=== PATIENT | male | born 1955 | race Caucasian/White ===

== ENCOUNTER → 2017-11-27 | Outpatient (CLI) | payer OTHER ==
--- NOTE | 2017-11-27 11:33 | Diagnostic Imaging Report ---
PROCEDURE: Frontal and lateral views of the chest. COMPARISON: None. INDICATIONS: HYPERTENSION FINDINGS: Exam limited by mild patient rotation. Lines/tubes: None. Lungs: The lungs are well inflated and clear. There is no evidence of pneumonia or pulmonary edema. Pleura: There is no pleural effusion or pneumothorax. Heart and mediastinum: Cardiac silhouette is unremarkable. Pulmonary vasculature is normal. Atherosclerotic calcification aortic arch. Bones: No acute bony abnormality. Degenerative disc changes in the thoracic spine. IMPRESSION: 1. No acute cardiopulmonary abnormalities. Gilberto Willson M.D. Dictated by: Gilberto Willson M.D. on 11/27/2017 at 11:34 Electronically approved by: Gilberto Willson M.D. on 11/27/2017 at 11:34
== END ==
LOC: RAD 10:36
PROVIDERS: ATTEND Internal Medicine
DX: Z00.00 Encounter for general adult medical examination without abnormal findings (principal)
CPT/HCPCS: 71046